=== PATIENT | male | born 1945 | race Two or more races ===

== ENCOUNTER 2021-09-17 10:15 | Inpatient (IN) | payer MEDICARE, MEDICAID ==
[2021-09-16] MEDS: SODIUM CHLORIDE 0.9% 1,000 ML IV SCH (19:00)
[~2021-09-17] VITALS: Ht 162.6 cm; Wt 77.6 kg
[2021-09-17] MEDS ORDERED: HEPARIN SODIUM,PORCINE 1,000 UNITS/ML 10 ML VIAL IVP ONE (12:00)
[2021-09-17] MEDS ORDERED: PROPOFOL 1% 20 ML VIAL IVP ONE (12:00)
[2021-09-17] MEDS ORDERED: ESMOLOL HCL 10 MG/ML 10 ML VIAL IVP ONE (12:00)
[2021-09-17] MEDS ORDERED: LIDOCAINE/PF 2% 5 ML VIAL IM ONE (12:00)
[2021-09-17] MEDS ORDERED: HEPARIN SODIUM,PORCINE 5,000 UNITS/ML VIAL IVP ONE ×3 (13:15→16:00)
[2021-09-17] MEDS ORDERED: HEPARIN SODIUM,PORCINE 5,000 UNITS/ML VIAL IVP PRN ×2 (13:15)
[2021-09-17] MEDS: HEPARIN SODIUM 25000 UNITS/D5W 250 ML IV PRN (13:17)
[2021-09-17 13:38] LABS: BASOPHILS % (AUTO) 0.5 % (0.0-2.0); EOSINOPHILS % (AUTO) 0.7 % (1.0-6.0); HEMATOCRIT 43.8 % (41-53); LYMPHOCYTES # (AUTO) 0.6 K/uL (1.0-4.8); LYMPHOCYTES % (AUTO) 8.9 % (22.0-44.0); MEAN CORPUSCULAR HEMOGLOBIN 31.3 pg (26.0-34.0); MEAN CORPUSCULAR HGB CONC 34.3 G/dL (31.0-37.0); MEAN CORPUSCULAR VOLUME 91 fL (80-100); MONOCYTES # (AUTO) 0.8 K/uL (0.1-1.0); NEUTROPHILS # (AUTO) 5.4 K/uL (1.8-7.7); NEUTROPHILS % (AUTO) 78.9 % (40.0-70.0); PLATELET COUNT (AUTO) 174 K/uL (150-450); RED BLOOD CELL COUNT(AUTO) 4.79 MIL/uL (4.50-5.90); RED CELL DISTRIBUTION WIDTH 14.5 % (11.5-14.5)
[2021-09-17 13:48] LABS: ANION GAP 7 mmol/L (8-16); CALCIUM, TOTAL 8.9 mg/dL (8.8-10.5); CARBON DIOXIDE 25 mmol/L (22-29); CHLORIDE 105 mmol/L (98-107); GLOMERULAR FILTR. RATE CALC > 60 mL/min (>60); GLUCOSE,RANDOM 97 mg/dL (70-110); POTASSIUM 4.3 mmol/L (3.5-5.1); SODIUM SERUM 137 mmol/L (136-145); UREA NITROGEN, BLOOD 21 mg/dL (7-18)
[2021-09-17 13:53] LABS: ALANINE AMINOTRANSFERASE 85 U/L (12-78); ALBUMIN 2.9 g/dL (3.4-5.0); ALKALINE PHOSPHATASE 109 U/L (46-116); ASPARTATE AMINOTRANSFERASE 60 U/L (15-37); TOTAL PROTEIN, SERUM 7.3 g/dL (6.4-8.2)
[2021-09-17 14:08] LABS: INR 1.1 (0.9-1.1); PROTHROMBIN TIME 11.9 SEC (9.4-11.6)
[2021-09-17] MEDS ORDERED: IODIXANOL 320 MG/ML 150 ML VIAL ONE (14:24)
[2021-09-17] MEDS ORDERED: IODIXANOL 320 MG/ML 50 ML VIAL ONE (14:24)
[2021-09-17] MEDS ORDERED: LIDOCAINE/PF 1% 30 ML VIAL ONE (14:24)
[2021-09-17] MEDS ORDERED: IODIXANOL 320 MG/ML 100 ML VIAL ONE ×2 (14:24→16:36)
[2021-09-17] MEDS ORDERED: NITROGLYCERIN 50 MG/D5% WATER 250 ML ONE (14:24)
[2021-09-17] MEDS ORDERED: SODIUM BICARBONATE 50 MEQ/50 ML VIAL ONE (14:25)
[2021-09-17] MEDS ORDERED: HEPARIN SODIUM 1000 UNITS/NS 1,000 ML ONE (14:25)
[2021-09-17 14:59] VITALS: BP 143/88
[2021-09-17] MEDS ORDERED: ONDANSETRON HCL 4 MG/2 ML VIAL IVP PRN (15:00)
[2021-09-17] MEDS ORDERED: ZOLPIDEM TARTRATE 5 MG TABLET PO PRN (15:00)
[2021-09-17] MEDS ORDERED: ACETAMINOPHEN 325 MG TABLET PO PRN (15:00)
[2021-09-17] MEDS ORDERED: BISACODYL 10 MG RECTAL RECTAL SUPPOSITORY PR PRN (15:00)
[2021-09-17] MEDS ORDERED: MAGNESIUM HYDROXIDE SUSPENSION 30 ML UDCUP PO PRN (15:00)
[2021-09-17] MEDS ORDERED: MORPHINE SULFATE 2 MG/ML SYRINGE IVP PRN (15:00)
[2021-09-17] MEDS ORDERED: HYDROCODONE/ACETAMINOPHEN 5-325 MG TABLET PO PRN (15:00)
[2021-09-17] MEDS ORDERED: MIDAZOLAM HCL 2 MG/2 ML VIAL ONE ×3 (15:08→16:59)
[2021-09-17] MEDS ORDERED: FentaNYL CITRATE PF 100 MCG/2 ML VIAL ONE (15:08)
[2021-09-17] MEDS ORDERED: ALTEPLASE 8 MG in SODIUM CHLORIDE 0.9% 250 ML IV ONE (15:30)
[2021-09-17] MEDS ORDERED: HEPARIN SODIUM 25000 UNITS/D5W 250 ML IV ONE (15:36)
[2021-09-17] MEDS ORDERED: LIDOCAINE 1% 30 ML/SOD BICARB 8.4% 4 ML SQ ONE (16:00)
[2021-09-17] MEDS ORDERED: FentaNYL CITRATE PF 100 MCG/2 ML VIAL IVP ONE ×3 (16:00→16:45)
[2021-09-17] MEDS ORDERED: HEPARIN SODIUM 1000 UNITS/NS 1,000 ML IARTER ONE (16:00)
[2021-09-17] MEDS ORDERED: IODIXANOL 320 MG/ML 150 ML VIAL IARTER ONE (16:00)
[2021-09-17] MEDS ORDERED: ALTEPLASE 2 MG VIAL IV ONE (16:00)
[2021-09-17] MEDS ORDERED: SODIUM CHLORIDE 0.9% 500 ML IV ONE (16:00)
[2021-09-17] MEDS ORDERED: MIDAZOLAM HCL 2 MG/2 ML VIAL IVP ONE ×4 (16:00→17:15)
[2021-09-17] MEDS ORDERED: HydrALAZINE HCL 20 MG/ML VIAL ONE (16:13)
[2021-09-17 16:14] LABS: CREATINE KINASE, TOTAL ONLY 856 U/L (39-308)
[2021-09-17] MEDS ORDERED: HydrALAZINE HCL 20 MG/ML VIAL IVP ONE (16:30)
[2021-09-17] MEDS ORDERED: IODIXANOL 320 MG/ML 100 ML VIAL IARTER ONE (16:30)
[2021-09-17] MEDS ORDERED: MORPHINE SULFATE 2 MG/ML SYRINGE ONE ×2 (16:51→17:36)
[2021-09-17] MEDS ORDERED: MORPHINE SULFATE 2 MG/ML SYRINGE IVP ONE ×2 (17:00→17:45)
[2021-09-17 18:04] VITALS: BP 122/73
[2021-09-17] MEDS ORDERED: NITROGLYCERIN/D5W 50 MG/250 ML IV BOTTLE IARTER ONE (18:15)
[2021-09-17 20:00] VITALS: BP 151/86
[2021-09-17] MEDS: DOCUSATE SODIUM 100 MG CAPSULE PO SCH (21:00)
[2021-09-18] VITALS (7 sets, daily range): BP systolic 98–134; BP diastolic 66–76
[2021-09-18 02:01] LABS: COVID AG,FIA SOURCE NASAL SWAB
[2021-09-18] MEDS: ALTEPLASE 8 MG in SODIUM CHLORIDE 0.9% 250 ML IV SCH ×2 (02:34→11:02)
[2021-09-18 04:10] LABS: LACTIC ACID 0.7 mmol/L (0.4-2.0)
[2021-09-18 04:11] LABS: BASOPHILS % (AUTO) 0.3 % (0.0-2.0); EOSINOPHILS % (AUTO) 0.1 % (1.0-6.0); HEMATOCRIT 41.3 % (41-53); LYMPHOCYTES # (AUTO) 0.4 K/uL (1.0-4.8); LYMPHOCYTES % (AUTO) 4.7 % (22.0-44.0); MEAN CORPUSCULAR HEMOGLOBIN 31.3 pg (26.0-34.0); MEAN CORPUSCULAR VOLUME 92 fL (80-100); MONOCYTES # (AUTO) 0.8 K/uL (0.1-1.0); MONOCYTES % (AUTO) 9.4 % (2.0-9.0); RED BLOOD CELL COUNT(AUTO) 4.48 MIL/uL (4.50-5.90); RED CELL DISTRIBUTION WIDTH 14.5 % (11.5-14.5)
[2021-09-18 04:16] LABS: NEUTROPHILS % (AUTO) 85.5 % (40.0-70.0)
[2021-09-18 04:18] LABS: PLATELET COUNT (AUTO) 65 K/uL (150-450)
[2021-09-18 04:20] LABS: CHOL/HDL RATIO 4.1 (4.2-7.3)
[2021-09-18] MEDS: DOCUSATE SODIUM 100 MG CAPSULE PO SCH ×2 (08:29→21:00)
[2021-09-18] MEDS: PANTOPRAZOLE SODIUM 40 MG DR TABLET PO SCH (08:29)
[2021-09-18] MEDS ORDERED: DIAZEPAM 5 MG TABLET PO ONE (08:30)
[2021-09-18] MEDS ORDERED: DiphenhydrAMINE HCL 25 MG CAPSULE PO ONE (08:30)
[2021-09-18 09:11] LABS: ALANINE AMINOTRANSFERASE 51 U/L (12-78); ALBUMIN 2.5 g/dL (3.4-5.0); ALKALINE PHOSPHATASE 98 U/L (46-116); ANION GAP 5 mmol/L (8-16); ASPARTATE AMINOTRANSFERASE 56 U/L (15-37); BILIRUBIN,TOTAL 1.9 mg/dL (0.1-1.0); CALCIUM, TOTAL 8.2 mg/dL (8.8-10.5); CARBON DIOXIDE 27 mmol/L (22-29); CHLORIDE 106 mmol/L (98-107); CREATININE 1.06 mg/dL (0.60-1.30); GLOMERULAR FILTR. RATE CALC > 60 mL/min (>60); GLUCOSE,RANDOM 105 mg/dL (70-110); POTASSIUM 4.5 mmol/L (3.5-5.1); SODIUM SERUM 138 mmol/L (136-145); TOTAL PROTEIN, SERUM 6.4 g/dL (6.4-8.2); UREA NITROGEN, BLOOD 19 mg/dL (7-18)
[2021-09-18] MEDS: HEPARIN SODIUM 25000 UNITS/D5W 250 ML IV PRN (11:06)
[2021-09-18] MEDS ORDERED: FentaNYL CITRATE PF 100 MCG/2 ML VIAL IVP ONE (12:00)
[2021-09-18] MEDS ORDERED: MIDAZOLAM HCL 2 MG/2 ML VIAL IVP ONE (12:00)
[2021-09-18] MEDS ORDERED: LIDOCAINE/PF 1% 30 ML VIAL ONE (14:36)
[2021-09-18] MEDS ORDERED: BUPIVACAINE HCL/PF 0.5% 30 ML VIAL ONE (14:36)
[2021-09-18] MEDS ORDERED: BUPIVACAINE HCL/PF 0.25% 30 ML VIAL ONE (14:36)
[2021-09-18] MEDS ORDERED: HEPARIN SODIUM,PORCINE 5,000 UNITS/ML VIAL IVP PRN ×2 (16:30)
[2021-09-18] MEDS ORDERED: HEPARIN SODIUM,PORCINE 5,000 UNITS/ML VIAL IVP ONE (16:30)
[2021-09-18] MEDS ORDERED: SODIUM CHLORIDE 0.9% 1,000 ML IV ONE (16:45)
[2021-09-18] MEDS: SODIUM CHLORIDE 0.9% 1,000 ML IV SCH (23:30)
[2021-09-19] VITALS (8 sets, daily range): BP systolic 104–121; BP diastolic 60–70
[2021-09-19] MEDS: SODIUM CHLORIDE 0.9% 1,000 ML IV SCH (03:22)
[2021-09-19] MEDS: HEPARIN SODIUM 25000 UNITS/D5W 250 ML IV PRN ×2 (03:23→19:18)
[2021-09-19] MEDS: DOCUSATE SODIUM 100 MG CAPSULE PO SCH ×2 (08:46→21:00)
[2021-09-19] MEDS: PANTOPRAZOLE SODIUM 40 MG DR TABLET PO SCH (08:46)
[2021-09-19 12:45] LABS: CHOL/HDL RATIO 3.2 (4.2-7.3); MAGNESIUM 2.1 mg/dL (1.80-2.40); PHOSPHORUS 3.2 mg/dL (2.5-4.9)
[2021-09-19 13:13] LABS: HEMOGLOBIN A1C 5.8 % (3.8-5.6)
[2021-09-19 18:29] LABS: BASOPHILS % (AUTO) 0.3 % (0.0-2.0); EOSINOPHILS % (AUTO) 0.5 % (1.0-6.0); HEMATOCRIT 36.9 % (41-53); HEMOGLOBIN 12.5 g/dL (13.5-17.5); LYMPHOCYTES # (AUTO) 0.4 K/uL (1.0-4.8); LYMPHOCYTES % (AUTO) 6.6 % (22.0-44.0); MEAN CORPUSCULAR HEMOGLOBIN 31.2 pg (26.0-34.0); MEAN CORPUSCULAR VOLUME 92 fL (80-100); MONOCYTES # (AUTO) 0.5 K/uL (0.1-1.0); MONOCYTES % (AUTO) 7.6 % (2.0-9.0); NEUTROPHILS # (AUTO) 5.5 K/uL (1.8-7.7); RED BLOOD CELL COUNT(AUTO) 4.02 MIL/uL (4.50-5.90); RED CELL DISTRIBUTION WIDTH 14.3 % (11.5-14.5)
[2021-09-19 18:50] LABS: PLATELET COUNT (AUTO) 42 K/uL (150-450)
[2021-09-19] MEDS ORDERED: *CLINICAL-ARGATROBAN DOSING CLINICAL ONE (21:30)
[2021-09-19] MEDS ORDERED: ARGATROBAN 250 MG in DEXTROSE 5%-WATER 247.5 ML IV PRN (23:45)
[2021-09-20 03:28] VITALS: BP 100/60
[2021-09-20 06:52] LABS: BASOPHILS % (AUTO) 0.3 % (0.0-2.0); EOSINOPHILS % (AUTO) 1.2 % (1.0-6.0); HEMATOCRIT 35.3 % (41-53); HEMOGLOBIN 12.3 g/dL (13.5-17.5); LYMPHOCYTES # (AUTO) 0.5 K/uL (1.0-4.8); LYMPHOCYTES % (AUTO) 7.5 % (22.0-44.0); MEAN CORPUSCULAR HEMOGLOBIN 31.8 pg (26.0-34.0); MEAN CORPUSCULAR VOLUME 91 fL (80-100); MONOCYTES # (AUTO) 0.7 K/uL (0.1-1.0); MONOCYTES % (AUTO) 11.3 % (2.0-9.0); NEUTROPHILS % (AUTO) 79.7 % (40.0-70.0); RED BLOOD CELL COUNT(AUTO) 3.87 MIL/uL (4.50-5.90); RED CELL DISTRIBUTION WIDTH 14.5 % (11.5-14.5)
[2021-09-20 07:14] LABS: ALANINE AMINOTRANSFERASE 46 U/L (12-78); ALBUMIN 2.1 g/dL (3.4-5.0); ALKALINE PHOSPHATASE 85 U/L (46-116); ANION GAP 7 mmol/L (8-16); ASPARTATE AMINOTRANSFERASE 65 U/L (15-37); BILIRUBIN,TOTAL 1.6 mg/dL (0.1-1.0); CALCIUM, TOTAL 8.1 mg/dL (8.8-10.5); CARBON DIOXIDE 26 mmol/L (22-29); CHLORIDE 101 mmol/L (98-107); CREATININE 0.95 mg/dL (0.60-1.30); GLOMERULAR FILTR. RATE CALC > 60 mL/min (>60); GLUCOSE,RANDOM 98 mg/dL (70-110); SODIUM SERUM 134 mmol/L (136-145); UREA NITROGEN, BLOOD 17 mg/dL (7-18)
[2021-09-20 07:19] VITALS: BP 101/67
[2021-09-20 07:45] LABS: PLATELET COUNT (AUTO) 41 K/uL (150-450)
[2021-09-20] MEDS: DOCUSATE SODIUM 100 MG CAPSULE PO SCH ×2 (08:14→21:00)
[2021-09-20] MEDS: PANTOPRAZOLE SODIUM 40 MG DR TABLET PO SCH (08:14)
[2021-09-20 11:07] VITALS: BP 98/62
[2021-09-20 16:30] VITALS: BP 99/64
[2021-09-20 20:40] VITALS: BP 102/66
[2021-09-20] MEDS: SODIUM CHLORIDE 0.9% 1,000 ML IV SCH (21:12)
[2021-09-21 00:20] VITALS: BP 99/63
[2021-09-21 05:48] VITALS: BP 101/74
[2021-09-21 07:30] VITALS: BP 101/75
[2021-09-21] MEDS: DOCUSATE SODIUM 100 MG CAPSULE PO SCH ×2 (08:09→21:50)
[2021-09-21] MEDS: PANTOPRAZOLE SODIUM 40 MG DR TABLET PO SCH (08:13)
[2021-09-21 08:25] LABS: BASOPHILS % (AUTO) 0.5 % (0.0-2.0); EOSINOPHILS % (AUTO) 2.1 % (1.0-6.0); HEMATOCRIT 34.9 % (41-53); HEMOGLOBIN 12.4 g/dL (13.5-17.5); LYMPHOCYTES # (AUTO) 0.4 K/uL (1.0-4.8); LYMPHOCYTES % (AUTO) 7.4 % (22.0-44.0); MEAN CORPUSCULAR HGB CONC 35.5 G/dL (31.0-37.0); MEAN CORPUSCULAR VOLUME 90 fL (80-100); MONOCYTES # (AUTO) 0.6 K/uL (0.1-1.0); NEUTROPHILS # (AUTO) 4.5 K/uL (1.8-7.7); PLATELET COUNT (AUTO) 56 K/uL (150-450); RED BLOOD CELL COUNT(AUTO) 3.88 MIL/uL (4.50-5.90)
[2021-09-21 08:45] LABS: ALANINE AMINOTRANSFERASE 64 U/L (12-78); ALBUMIN 2.2 g/dL (3.4-5.0); ALKALINE PHOSPHATASE 89 U/L (46-116); ANION GAP 7 mmol/L (8-16); ASPARTATE AMINOTRANSFERASE 73 U/L (15-37); BILIRUBIN,TOTAL 0.8 mg/dL (0.1-1.0); CALCIUM, TOTAL 8.2 mg/dL (8.8-10.5); CARBON DIOXIDE 26 mmol/L (22-29); CHLORIDE 102 mmol/L (98-107); CREATININE 0.92 mg/dL (0.60-1.30); GLUCOSE,RANDOM 98 mg/dL (70-110); POTASSIUM 4.2 mmol/L (3.5-5.1); SODIUM SERUM 135 mmol/L (136-145); TOTAL PROTEIN, SERUM 6.2 g/dL (6.4-8.2); UREA NITROGEN, BLOOD 16 mg/dL (7-18)
[2021-09-21 08:49] LABS: GLOMERULAR FILTR. RATE CALC > 60 mL/min (>60)
[2021-09-21 11:33] VITALS: BP 101/69
[2021-09-21 15:55] VITALS: BP 100/68
[2021-09-21 19:38] VITALS: BP 103/65
[2021-09-21] MEDS: APIXABAN 5 MG TABLET PO SCH (21:49)
[2021-09-22] VITALS (7 sets, daily range): BP systolic 71–113; BP diastolic 64–81
[2021-09-22] MEDS: SODIUM CHLORIDE 0.9% 1,000 ML IV SCH ×2 (00:41→23:00)
[2021-09-22 07:01] LABS: BASOPHILS % (AUTO) 0.8 % (0.0-2.0); EOSINOPHILS % (AUTO) 4.4 % (1.0-6.0); HEMATOCRIT 35.7 % (41-53); HEMOGLOBIN 12.7 g/dL (13.5-17.5); LYMPHOCYTES # (AUTO) 0.5 K/uL (1.0-4.8); LYMPHOCYTES % (AUTO) 8.8 % (22.0-44.0); MEAN CORPUSCULAR HEMOGLOBIN 32.2 pg (26.0-34.0); MEAN CORPUSCULAR HGB CONC 35.6 G/dL (31.0-37.0); MEAN CORPUSCULAR VOLUME 90 fL (80-100); MONOCYTES # (AUTO) 0.6 K/uL (0.1-1.0); MONOCYTES % (AUTO) 11.4 % (2.0-9.0); NEUTROPHILS # (AUTO) 4.1 K/uL (1.8-7.7); NEUTROPHILS % (AUTO) 74.6 % (40.0-70.0); PLATELET COUNT (AUTO) 72 K/uL (150-450); RED BLOOD CELL COUNT(AUTO) 3.96 MIL/uL (4.50-5.90); RED CELL DISTRIBUTION WIDTH 14.7 % (11.5-14.5)
[2021-09-22] MEDS: APIXABAN 5 MG TABLET PO SCH ×2 (08:36→21:04)
[2021-09-22] MEDS: PANTOPRAZOLE SODIUM 40 MG DR TABLET PO SCH (08:36)
[2021-09-22] MEDS: DOCUSATE SODIUM 100 MG CAPSULE PO SCH ×2 (08:36→21:04)
[2021-09-22] MEDS ORDERED: APIX5TAB PO (13:47)
[2021-09-23 00:15] VITALS: BP 100/63
[2021-09-23 04:34] VITALS: BP 100/67
[2021-09-23 08:00] VITALS: BP 119/71
[2021-09-23] MEDS: APIXABAN 5 MG TABLET PO SCH (10:41)
[2021-09-23] MEDS: DOCUSATE SODIUM 100 MG CAPSULE PO SCH (10:41)
[2021-09-23] MEDS: PANTOPRAZOLE SODIUM 40 MG DR TABLET PO SCH (10:42)
[2021-09-23 16:10] VITALS: BP 110/55
== END 2021-09-23 17:23 | disposition home or self-care (01) | DRG 252 ==
LOC: EMS 10:15 → ICU 14:45 → 5S 09-19 16:30 → 6N 09-23 06:09
PROVIDERS: ADMIT Internal Medicine; ATTEND Internal Medicine
PROC: 047L3ZZ Dilation of Left Femoral Artery, Percutaneous Approach (ICD-10-PCS; principal; 2021-09-17)
PROC: 047N3ZZ Dilation of Left Popliteal Artery, Percutaneous Approach (ICD-10-PCS; 2021-09-17)
PROC: B4101ZZ Fluoroscopy of Abdominal Aorta using Low Osmolar Contrast (ICD-10-PCS; 2021-09-17)
PROC: 3E05317 Introduction of Other Thrombolytic into Peripheral Artery, Percutaneous Approach (ICD-10-PCS; 2021-09-17)
PROC: B41G1ZZ Fluoroscopy of Left Lower Extremity Arteries using Low Osmolar Contrast (ICD-10-PCS; 2021-09-17)
DX: I70.222 Atherosclerosis of native arteries of extremities with rest pain, left leg (principal); E43 Unspecified severe protein-calorie malnutrition; M62.82 Rhabdomyolysis; I74.3 Embolism and thrombosis of arteries of the lower extremities; Z20.822 Contact with and (suspected) exposure to COVID-19; R09.02 Hypoxemia; Z87.891 Personal history of nicotine dependence; Z79.01 Long term (current) use of anticoagulants; Z99.81 Dependence on supplemental oxygen
CPT/HCPCS: 36140; 36200; 75630; 75710; 75716; 75962; 80053; 80061; 82550; 83036; 83605; 83735; 84100; 84484; 85025; 85384; 85610; 85730; 86022; 86850; 86900; 86901; 87081; 93005; 93306; 93926; 99291; G0378; J0360; J0883; J1644; J2250; J2270; J2405; J2704; J2997; J3010; J3490; J7030; J7050; J7060; Q9967; 36415-L1; 36415-TC; C1725; Z7610

== ENCOUNTER 2024-04-25 13:50 | Inpatient (IN) | payer MEDICARE, OTHER ==
[~2024-04-25] VITALS: Ht 180.3 cm; Wt 76.6 kg
[~2024-04-25 13:50] MED LIST: ATOR20TA65 PO; FOLI-130 PO; LEVO750T68 PO; [UNRECOGNIZED DRUG - REMARK] CERV
[2024-04-25 14:36] LABS: MEAN CORPUSCULAR HEMOGLOBIN 31.6 pg (26.0-34.0); MEAN CORPUSCULAR VOLUME 93 fL (80-100); RED BLOOD CELL COUNT(AUTO) 1.63 MIL/uL (4.50-5.90)
[2024-04-25 14:49] LABS: ANION GAP 10 mmol/L (8-16); CALCIUM, TOTAL 7.9 mg/dL (8.8-10.5); CARBON DIOXIDE 25 mmol/L (22-29); CHLORIDE 101 mmol/L (98-107); CREATININE 0.92 mg/dL (0.60-1.30); GLOMERULAR FILTR. RATE CALC > 60 mL/min (>60); GLUCOSE,RANDOM 102 mg/dL (70-110); POTASSIUM 4.5 mmol/L (3.5-5.1); SODIUM SERUM 135 mmol/L (136-145); UREA NITROGEN, BLOOD 19 mg/dL (7-18)
[2024-04-25 14:50] LABS: HEMATOCRIT 15.1 % (41-53); HEMOGLOBIN 5.2 g/dL (13.5-17.5); PLATELET COUNT (AUTO) 5 K/uL (150-450); WHITE BLOOD COUNT (AUTO) 0.8 K/uL (4.5-11.0)
[2024-04-25] MEDS ORDERED: ONDANSETRON HCL 4 MG/2 ML VIAL IVP PRN (15:15)
[2024-04-25 15:43] LABS: RBC MORPHOLOGY COMMENT ABNORMAL R
[2024-04-25 15:49] LABS: BAND NEUTROPHILS % (MANUAL) 0 % (0-5)
[2024-04-25 15:50] LABS: LYMPHOCYTES % (MANUAL) 72 % (22-44); MONOCYTES % (MANUAL) 8 % (2-9); SEGMENTED NEUTROPHILS % 20 % (40-70); TOTAL CELLS COUNTED 25
[2024-04-25] MEDS: FOLIC ACID 1 MG TABLET PO SCH (16:17)
[2024-04-25] MEDS: EPOETIN ALFA 10,000 UNITS/ML 2 ML VIAL SQ ONE (16:17)
[2024-04-25 16:45] VITALS: BP 105/63; PULSE 77; RESP 17; TEMP 100.6
[2024-04-25] MEDS: ACETAMINOPHEN 325 MG TABLET PO PRN (17:03)
[2024-04-25] MEDS: DiphenhydrAMINE HCL 50 MG/ML VIAL IVP ONE (17:04)
[2024-04-25] MEDS: *CLINICAL-CEFEPIME DOSING CLINICAL ONE (17:44)
[2024-04-25 18:02] LABS: APPEARANCE,URINE CLEAR (CLEAR); BILIRUBIN,URINE NEGATIVE (NEGATIVE); COLOR,URINE LIGHT YELLOW (YELLOW); GLUCOSE, URINE (UA) NEGATIVE (NEGATIVE); KETONES,URINE NEGATIVE (NEGATIVE); LEUKOCYTE ESTERASE ,URINE NEGATIVE (NEGATIVE); NITRATE,URINE NEGATIVE (NEGATIVE); OCCULT BLOOD,URINE NEGATIVE (NEGATIVE); PH,URINE 7.5 (5.0-8.0); PROTEIN,URINE NEGATIVE (NEGATIVE); SPECIFIC GRAVITIY, URINE 1.013 (1.003-1.030)
[2024-04-25] MEDS: SODIUM CHLORIDE 0.9% 1,000 ML IV ONE (18:27)
[2024-04-25 18:34] VITALS: BP 91/54; PULSE 87; RESP 18; TEMP 99.4
[2024-04-25] MEDS: CEFEPIME HCL 1 GM in DEXTROSE 5%-WATER 50 ML IV SCH (20:44)
[2024-04-25] MEDS: DOCUSATE SODIUM 100 MG CAPSULE PO SCH (22:34)
[2024-04-25 23:00] VITALS: BP 100/50; PULSE 102; RESP 18; TEMP 99.2
[2024-04-25 23:30] VITALS: BP 116/71; PULSE 87; RESP 18; TEMP 98.5
[2024-04-25 23:45] VITALS: BP 103/65; PULSE 81; RESP 18; TEMP 97.9
[2024-04-26] VITALS (24 sets, daily range): BP systolic 89–145; BP diastolic 51–95; PULSE 71–88; RESP 12–20; TEMP 97.7–99.5
[2024-04-26 04:36] LABS: MEAN CORPUSCULAR HEMOGLOBIN 31.4 pg (26.0-34.0); MEAN CORPUSCULAR HGB CONC 34.3 G/dL (31.0-37.0); MEAN CORPUSCULAR VOLUME 91 fL (80-100); RED BLOOD CELL COUNT(AUTO) 1.88 MIL/uL (4.50-5.90); RED CELL DISTRIBUTION WIDTH 15.8 % (11.5-14.5)
[2024-04-26 05:19] LABS: HEMATOCRIT 17.2 % (41-53); HEMOGLOBIN 5.9 g/dL (13.5-17.5); PLATELET COUNT (AUTO) 3 K/uL (150-450); WHITE BLOOD COUNT (AUTO) 0.5 K/uL (4.5-11.0)
[2024-04-26 05:20] LABS: BAND NEUTROPHILS % (MANUAL) 0 % (0-5)
[2024-04-26 05:22] LABS: EOSINOPHILS % (MANUAL) 4 % (1-6); LYMPHOCYTES % (MANUAL) 58 % (22-44); MONOCYTES % (MANUAL) 24 % (2-9); REACTIVE LYMPHOCYTES 2 % (0-0); SEGMENTED NEUTROPHILS % 12 % (40-70); TOTAL CELLS COUNTED 50
[2024-04-26 05:23] LABS: RBC MORPHOLOGY COMMENT ABNORMAL RBC MORPH
[2024-04-26 05:24] LABS: BUFFY COAT SMEAR PREP YES (NOT DONE)
[2024-04-26] MEDS: PANTOPRAZOLE SODIUM 40 MG DR TABLET PO SCH (09:00)
[2024-04-26] MEDS ORDERED: SODIUM CHLORIDE 0.9% 500 ML IV ONE ×2 (19:59→22:31)
[2024-04-26 21:39] LABS: MEAN CORPUSCULAR HEMOGLOBIN 30.9 pg (26.0-34.0); MEAN CORPUSCULAR HGB CONC 33.9 G/dL (31.0-37.0); MEAN CORPUSCULAR VOLUME 91 fL (80-100); PLATELET COUNT (AUTO) 20 K/uL (150-450); RED BLOOD CELL COUNT(AUTO) 2.08 MIL/uL (4.50-5.90); RED CELL DISTRIBUTION WIDTH 15.5 % (11.5-14.5)
[2024-04-26 21:51] LABS: HEMOGLOBIN 6.4 g/dL (13.5-17.5); WHITE BLOOD COUNT (AUTO) 0.5 K/uL (4.5-11.0)
[2024-04-26 21:55] LABS: HEMATOCRIT 18.9 % (41-53)
[2024-04-26 21:59] LABS: BAND NEUTROPHILS % (MANUAL) 0 % (0-5)
[2024-04-26 22:06] LABS: EOSINOPHILS % (MANUAL) 1 % (1-6); LYMPHOCYTES % (MANUAL) 72 % (22-44); MONOCYTES % (MANUAL) 18 % (2-9); SEGMENTED NEUTROPHILS % 9 % (40-70); TOTAL CELLS COUNTED 100
[2024-04-26 22:07] LABS: RBC MORPHOLOGY COMMENT ABNORMAL R
[2024-04-26] MEDS ORDERED: SODIUM CHLORIDE 0.9% 0 ML ONE (22:30)
[2024-04-27] VITALS (9 sets, daily range): BP systolic 101–123; BP diastolic 59–79; PULSE 74–90; RESP 16–19; TEMP 97.8–99.5
[2024-04-27 07:37] LABS: HEMATOCRIT 22.7 % (41-53); HEMOGLOBIN 7.8 g/dL (13.5-17.5); MEAN CORPUSCULAR HGB CONC 34.2 G/dL (31.0-37.0); MEAN CORPUSCULAR VOLUME 91 fL (80-100); PLATELET COUNT (AUTO) 21 K/uL (150-450); RED BLOOD CELL COUNT(AUTO) 2.51 MIL/uL (4.50-5.90); RED CELL DISTRIBUTION WIDTH 14.9 % (11.5-14.5)
[2024-04-27 07:42] LABS: WHITE BLOOD COUNT (AUTO) 0.6 K/uL (4.5-11.0)
[2024-04-27 08:36] LABS: BAND NEUTROPHILS % (MANUAL) 1 % (0-5); LYMPHOCYTES % (MANUAL) 85 % (22-44); MONOCYTES % (MANUAL) 4 % (2-9); SEGMENTED NEUTROPHILS % 10 % (40-70); TOTAL CELLS COUNTED 100
[2024-04-27 08:37] LABS: RBC MORPHOLOGY COMMENT ABNORMAL RBC MORPH
[2024-04-28] VITALS: BP 111/71; PULSE 77; RESP 20; TEMP 98.3
[2024-04-28 04:12] VITALS: BP 115/82; PULSE 81; RESP 17; TEMP 98.1
[2024-04-28 07:11] LABS: HEMATOCRIT 23.4 % (41-53); HEMOGLOBIN 8.3 g/dL (13.5-17.5); MEAN CORPUSCULAR HEMOGLOBIN 31.7 pg (26.0-34.0); MEAN CORPUSCULAR HGB CONC 35.4 G/dL (31.0-37.0); MEAN CORPUSCULAR VOLUME 89 fL (80-100); RED BLOOD CELL COUNT(AUTO) 2.61 MIL/uL (4.50-5.90)
[2024-04-28 07:22] VITALS: BP 107/69; PULSE 74; RESP 18; TEMP 98.8
[2024-04-28 07:29] LABS: WHITE BLOOD COUNT (AUTO) 0.7 K/uL (4.5-11.0)
[2024-04-28 07:32] LABS: BAND NEUTROPHILS % (MANUAL) 0 % (0-5); PLATELET COUNT (AUTO) 17 K/uL (150-450)
[2024-04-28 08:16] LABS: LYMPHOCYTES % (MANUAL) 74 % (22-44); MONOCYTES % (MANUAL) 12 % (2-9); SEGMENTED NEUTROPHILS % 14 % (40-70); TOTAL CELLS COUNTED 100
[2024-04-28] MEDS ORDERED: LEVO-72 PO (10:58)
[2024-04-28 11:26] VITALS: BP 102/60; PULSE 76; RESP 18; TEMP 98.7
[2024-04-28] MEDS: NYSTATIN 500,000 UNITS/5 ML SUSPENSION UDCUP PO SCH (12:22)
== END 2024-04-28 13:15 | disposition home or self-care (01) | DRG 812 ==
LOC: EMS 13:50 → EDH 15:07 → 5S 18:18
PROVIDERS: ADMIT Internal Medicine; ATTEND Internal Medicine
PROC: 30233N1 Transfusion of Nonautologous Red Blood Cells into Peripheral Vein, Percutaneous Approach (ICD-10-PCS; 2024-04-25)
PROC: 30233R1 Transfusion of Nonautologous Platelets into Peripheral Vein, Percutaneous Approach (ICD-10-PCS; principal; 2024-04-26)
DX: D46.9 Myelodysplastic syndrome, unspecified (principal); D61.818 Other pancytopenia; R50.81 Fever presenting with conditions classified elsewhere; E78.00 Pure hypercholesterolemia, unspecified; Z86.718 Personal history of other venous thrombosis and embolism; Z79.899 Other long term (current) drug therapy
CPT/HCPCS: 80048; 81003; 85009; 85025; 86850; 86900; 86901; 86923; 87040; 93970; 99291; J0692; J0885; J1200; J7030; J7040; J7060; P9016; P9035